=== PATIENT | female | born 1970 | race Caucasian/White ===

== ENCOUNTER 2018-03-15 15:24 | Emergency (ER) | payer OTHER, SELFPAY ==
[2018-03-15 15:27] VITALS: BP 166/97; PULSE 75; RESP 16; TEMP 36.8; O2SAT 99; BMI 32.5
--- NOTE | 2018-03-15 16:32 | ED.UPPEXIN ---
HPI - Extremity Injury (Upper) General Chief Complaint: Extremity Injury, Upper Stated Complaint: LT THUMB INJURY Time Seen by Provider: 03/15/18 15:47 Source: patient Mode of arrival: ambulatory Limitations: no limitations History of Present Illness HPI narrative: Patient states she was working with her horse when a metal buckle attached to the horses harness caught on her L thumb and caused a gash in the tip of her thumb. She denies any other injuries. complaint: injury to: left Onset (ago): hour(s) Other Extremity Injury: Left: fingers ( thumb) Other injuries: none Handedness: right Place: home Severity: moderate Severity scale (1-10): 7 Relieving factors: none Exacerbating factors: none Context: other ( see above) Related Data Home Medications Medication Instructions Recorded Confirmed bupropion HCl [Wellbutrin XL] 150 mg PO QDAY #0 01/22/16 03/15/18 cholecalciferol (vitamin D3) 2,000 unit PO QDAY #0 06/28/17 [Vitamin D3] cyanocobalamin (vitamin B-12) PO QDAY #0 06/28/17 [Vitamin B-12] citalopram 1 tab PO DAILY 03/15/18 03/15/18 estradiol 03/15/18 losartan 1 tab PO DAILY 03/15/18 03/15/18 omeprazole 1 cap PO DAILY 03/15/18 03/15/18 Allergies Allergy/AdvReac Type Severity Reaction Status Date / Time hydromorphone [From DILAUDID] Allergy Intermediate Verified 03/15/18 15:27 morphine [MORPHINE] Allergy Mild ITCHING Verified 03/15/18 15:27 hydrocodone [HYDROCODONE] AdvReac Intermediate Verified 03/15/18 15:27 Review of Systems Review of Systems All systems reviewed & are unremarkable except as noted in HPI and below Constitutional Denies chills, Denies fever(s), Denies lethargy and Denies weakness Eyes Denies change in vision, Denies eye discharge, Denies irritation and Denies loss of vision ENT Ears, Nose, Mouth, and Throat: Denies change in voice, Denies neck pain and Denies sore throat Cardiovascular Denies chest pain, Denies irregular heart rhythm, Denies lightheadedness, Denies palpitations, Denies dyspnea, Denies dyspnea on exertion and Denies orthopnea Respiratory Denies cough, Denies dyspnea, Denies dyspnea on exertion and Denies wheezing Gastrointestinal Gastrointestinal: Denies abdominal pain, Denies change in bowel habits, Denies diarrhea, Denies nausea and Denies vomiting Genitourinary Denies hematuria, Denies flank pain, Denies urinary incontinence and Denies urinary urgency Musculoskeletal Denies neck pain Comments: soft tissue injury left thumb Integumentary/Breasts Denies pruritus, Denies erythema, Denies rash and Denies wounds Neurologic Denies confusion, Denies loss of vision and Denies weakness Psychiatric Denies anxiety, Denies confusion, Denies depression, Denies homicidal ideation and Denies suicidal ideation Endocrine Denies palpitations Hematologic/Lymphatic Denies easy bruising Allergic/Immunologic Denies wheezing PFSH Social History Smoking Status: Never smoker Exam Initial Vital Signs Initial Vital Signs: Vital Signs Temperature 98.2 F 03/15/18 15:27 Pulse Rate 75 03/15/18 15:27 Respiratory Rate 16 03/15/18 15:27 Blood Pressure 166/97 H 03/15/18 15:27 Pulse Oximetry 99 03/15/18 15:27 Const General: cooperative and well developed Nutritional Appearance: well nourished Orientation: alert, awake, oriented x3 and not confused [facility] Head: normocephalic and atraumatic Ears: external ears normal Nose: external nose normal and No nasal discharge Face and sinus: face symmetric and No dry mucous membranes Mouth: oral mucosae normal and moist mucous membranes Teeth and gingiva: dentition normal Eyes General: appearance normal, both eyes and all related structures Eyelids: eyelids normal Conjunctivae: conjunctivae normal Sclera: sclerae normal Pupils: PERRL EOM: EOM intact bilaterally Neck Neck: normal visual inspection, trachea midline, No lymphadenopathy, No midline deformity and No JVD Lymphatic: No lymphedema Chest Chest: normal inspection of the chest Resp Effort & Inspection: normal respiratory effort, able to speak in complete sentences, no respiratory distress and no use of accessory muscles Auscultation: clear to auscultation bilaterally, no rales, no rhonchi and no wheezes Cardio Rate: regular rate Rhythm: regular rhythm Heart Sounds: no click, no gallops, no murmurs and no rubs Pulses: normal peripheral pulses Back/Spine/Pelvis Back: No CVA tenderness Cervical Spine: cervical ROM normal and No pain with cervical ROM Thoracic/Lumbar Spine: thoracic and lumbar spine normal to inspection Skin General: no rashes or lesions noted, No jaundice and No petechiae Other: 4 cm laceration with jagged edges, noted to pad of left thumb. No bony or nail bed involvement. Minimal contamination with dirt. Tissue surrounding the wound is pink and viable-appearing, with good capillary refill. Neuro General: alert, oriented x3, gait normal and no focal motor deficits Speech: speech normal Extrem General: full ROM, no clubbing, cyanosis or edema, no pedal edema and no calf tenderness Other: Full range of motion of left thumb at the MCP and IP joints. No bony deformity. Psych Appearance: well kempt Mental Status: mental status grossly normal Attitude: cooperative Thought Content: normal and suicidality Judgment: judgment good Procedures Laceration Repair Laceration 1: Site: hand ( thumb) Side (If applicable): left Size (cm): 4 Description: irregular and contaminated ( mildly) Depth: simple, single layer Local Anesthetic: bupivacaine 0.5% ( as digital block) Amount of anesthesia used (mL): 8 Pre-repair: wound explored, irrigated extensively, deep structures intact and wound margins revised Skin layer closed with: nylon Size (cm): 5-0 Number of sutures: 12 Technique: simple, interrupted Nerve Block Nerve Block 1: Time out performed: Yes Local Anesthetic: bupivacaine 0.5% Amount of anesthesia used (mL): 8 Side: left Nerve Blocks: digital ( left thumb) Procedure Successful: Yes Patient Tolerated Procedure: Well and No complications Complications: none Course Course Narrative: bradly remained stable throughout her stay in the emergency department. She was initially given a soak with saline and Betadine, and the procedure was undertaken, as above. X-ray was performed to evaluate for possibility of fracture, this was found to be negative. Orders Ordered: ED Orders 03/15/18 16:31 XR hand LT min 3V Stat Vital Signs - 8 hr 03/15/18 15:27 03/15/18 18:21 Temperature 98.2 F Pulse Rate 75 77 Respiratory Rate 16 Blood Pressure 166/97 H 136/84 Pulse Oximetry 99 100 MDM - Extremity Injury (Upper) Medical Records Attestation: I reviewed the patient's medical records. Imaging Data Left hand x-ray: Attestation: I personally reviewed and interpreted this imaging study as follows: My impression: negative Radiologist's impression: PROCEDURE: XR HAND LT MIN 3V INDICATIONS: trauma, pain TECHNIQUE: 3 views of the hand(s) acquired. COMPARISON: None. FINDINGS: Bones: There is a ring identified overlying the proximal phalanx of the middle finger, which does result in inadequate evaluation of the 2nd through 5th proximal phalanges of the left hand on the lateral view. No displaced fractures or dislocations are identified. No suspicious osseous lesions are evident. Soft tissues: No suspicious soft tissue calcifications. Prominent soft tissue swelling with areas of soft tissue air are evident involving the thumb. No radiopaque foreign bodies are evident. IMPRESSION: 1. No acute fractures of the left hand. 2. Prominent soft tissue swelling with soft tissue air involving the thumb may be related to a laceration. Please correlate clinically to exclude infection. 3. No radiopaque foreign bodies. Dictated by: Nikhil Dalton M.D. on 03/15/2018 at 16:00 Approved by: Nikhil Dalton M.D. on 03/15/2018 at 16:03 [facility] Narrative Medical decision making narrative: we have discussed the usual wound care precautions that the patient should take at home, including avoidance of rubbing scrubbing or worsening the wound until the sutures are out, as a precautionary measure to prevent infection. We have discussed the usual indications for return, as well as the time frame for wound check and expected suture removal. Discharge Plan Departure Patient Disposition: Home Clinical Impression: Laceration of left thumb Discharge Date/Time: 03/15/18 18:22 Interventions: ED Discharge Assessment Last Done: 03/15/18 18:21 Instructions: DI for Laceration Repair Prescriptions: No Action bupropion HCl [Wellbutrin XL] 150 MG tablet extended release 24 hr 150 mg PO QDAY Qty: 0 RF: 0 cyanocobalamin (vitamin B-12) [Vitamin B-12] 50 mcg Tablet PO QDAY Qty: 0 RF: 0 cholecalciferol (vitamin D3) [Vitamin D3] 2,000 UNIT capsule 2,000 unit PO QDAY Qty: 0 RF: 0 citalopram 40 mg tablet 1 tab PO DAILY RF: 0 estradiol 0.1 mg/24 hr patch semiweekly RF: 0 omeprazole 40 mg capsule,delayed release(DR/EC) 1 cap PO DAILY RF: 0 losartan 25 mg tablet 1 tab PO DAILY RF: 0 Referrals: Liudmila Winn PA-C [Primary Care Provider] - (Please follow up with your doctor in 7 days for wound recheck and suture removal.)
--- NOTE | 2018-03-15 16:41 | PC.NURSE ---
Digital block performed by provider. Significant improvment in pain noted per patient. Soaked thumb in chlorahexadine bath and irrigated with NS.
[2018-03-15 18:21] VITALS: BP 136/84; PULSE 77; O2SAT 100
== END 2018-03-15 18:22 | disposition home or self-care (01) ==
PROVIDERS: Emergency Provider Emergency Medicine; PCP Physician Assistant
DX: S61.012A Laceration without foreign body of left thumb without damage to nail, initial encounter (principal); W23.0XXA Caught, crushed, jammed, or pinched between moving objects, initial encounter
CPT/HCPCS: 12002; 64450; 73130; 99283

== ENCOUNTER 2021-01-17 10:02 | Emergency (ER) | payer OTHER, SELFPAY ==
[2021-01-17] VITALS (14 sets, daily range): BP systolic 138–167; BP diastolic 82–98; PULSE 58–75; RESP 16–18; TEMP 36.6; O2SAT 96–98; BMI 33.5
[2021-01-17 12:19] LABS: Add Manual Diff / Slide Review NO; Basophils Absolute Auto 100 /uL (0-100); Basophils Percent Auto 0.8 % (0-2); Eosinophils Absolute Auto 200 /uL (0-450); Eosinophils Percent Auto 2.6 % (2-4); Hematocrit 42.2 % (36-46); Hemoglobin 14.1 g/dL (12.0-16.0); Lymphocytes Absolute Auto 2100 /uL (1100-4500); Lymphocytes Percent Auto 31.3 % (25-40); Mean Corpuscular HGB Conc 33.4 % (30-36); Mean Corpuscular Hemoglobin 32.1 PG (26-34); Mean Corpuscular Volume 96.2 fL (80-100); Monocytes Absolute Auto 600 /uL (0-900); Monocytes Percent Auto 8.7 % (3-14); Neutrophils Absolute Auto 3800 /uL (1500-7000); Neutrophils Percent Auto 56.6 % (50-75); Platelet Count 246 X10^3/uL (150-400); Red Blood Cell Count 4.38 X10^6/uL (4.0-5.2); Red Cell Distribution Width 13.6 % (11.6-14.8); White Blood Cell Count 6.6 X10^3/uL (4.5-11.0)
--- NOTE | 2021-01-17 12:26 | ED_ITS ---
HPI - GI Bleed General Chief complaint: GI Bleed Stated complaint: bloody stool Time Seen by Provider: 01/17/21 12:08 Source: patient Mode of arrival: Ambulatory Limitations: no limitations History of Present Illness HPI Narrative: This is a 50-year-old female comes emergency department with complaint of bloody stool x2 patient states that she noticed 2 episodes today. She denies any abdominal or rectal pain. She has got some chronic epigastric discomfort. She has felt a little lightheaded today. No syncope. No chest pain, no shortness of breath, no nausea vomiting patient does not take any aspirin thinners. She does not any changes to her bowel movements or urination. Patient does have a history significant for perforated ulcer which required a large abdominal surgery. She has had hysterectomy, appendectomy cholecystectomy. As well as oophorectomy. She is on citalopram, Wellbutrin omeprazole 40 mg daily. She has had 2 colonoscopies in the past but has not had her most recent EGD and colonoscopy and is overdue by several months. Related Data Home Medications Medication Instructions Recorded Confirmed bupropion HCl 150 mg 24 hr tablet, 150 mg PO QDAY #0 01/22/16 03/15/18 extended release (Wellbutrin XL) cholecalciferol (vitamin D3) 50 2,000 unit PO QDAY #0 06/28/17 mcg (2,000 unit) capsule (Vitamin D3) cyanocobalamin (vitamin B-12) 50 PO QDAY #0 06/28/17 mcg tablet (Vitamin B-12) citalopram 40 mg tablet 1 tab PO DAILY 03/15/18 03/15/18 estradiol 0.1 mg/24 hr semiweekly 03/15/18 transdermal patch losartan 25 mg tablet 1 tab PO DAILY 03/15/18 03/15/18 Previous Rx's Medication Instructions Recorded omeprazole 40 mg capsule,delayed 40 mg PO DAILY #30 cap 08/17/18 release prednisone 20 mg tablet 40 mg PO DAILY #10 tab 01/17/21 Allergies Allergy/AdvReac Type Severity Reaction Status Date / Time hydromorphone [From DILAUDID] Allergy Intermediate Verified 03/15/18 15:27 morphine [MORPHINE] Allergy Mild ITCHING Verified 03/15/18 15:27 hydrocodone [HYDROCODONE] AdvReac Intermediate Verified 03/15/18 15:27 Review of Systems Review of Systems ROS Unobtainable: All systems reviewed & are unremarkable except as noted in HPI and below Patient History Social History Smoking Status: Never smoker Smoking Status: Never smoker alcohol intake frequency: 0-2 drinks per day Substance Use Type: does not use Exam Narrative Exam Narrative: GENERAL: Alert and oriented x three, female in mild distress. HEENT: Head normocephalic, atraumatic, EOMI, pupils reactive, face symmetric, moist mucous membranes NECK: Supple, full range of motion CARDIOVASCULAR: Regular rate and rhythm without murmurs, rubs or gallops. RESPIRATORY: Breath sounds equal bilaterally, no wheezes rales or rhonchi. ABDOMEN: Soft, nontender. Normoactive bowel sounds all 4 quadrants. No guarding or rebound, rigidity, no mass : No CVA tenderness EXTREMITIES: Normal range of motion, no clubbing or edema. Neurovascularly intact NEUROLOGICAL: Cranial nerves II through XII grossly intact. Moving all extremities SKIN: Warm, dry, no petechiae, no rashes or lesions. Initial Vital Signs Initial Vital Signs: Vital Signs Temperature 98 F 01/17/21 10:05 Pulse Rate 71 01/17/21 10:05 Respiratory Rate 18 01/17/21 10:05 Blood Pressure 167/82 H 01/17/21 10:05 Pulse Oximetry 97 01/17/21 10:05 Course Orders Ordered: ED Orders 01/17/21 11:53 EKG-12 Lead Stat 01/17/21 12:10 Cancer Antigen 125 Stat Complete Blood Count AUTO DIFF Stat Comprehensive Metabolic Panel Stat Lipase Stat 01/17/21 13:33 CT abdomen pelvis w con Stat Consultations Consultation #1: Dr. Sloan, asks for CA 125 added on and patient to be set up for appointment to follow up shortly. Vital Signs Vital signs: Vital Signs - 8 hr 01/17/21 11:17 01/17/21 11:30 01/17/21 12:00 Pulse Rate 62 62 62 Respiratory Rate 16 Blood Pressure 142/84 H 141/82 H 138/82 Pulse Oximetry 98 97 97 01/17/21 12:17 01/17/21 12:30 01/17/21 12:34 Pulse Rate 66 60 69 Respiratory Rate Blood Pressure 150/91 H 143/92 H Pulse Oximetry 97 97 98 01/17/21 13:00 01/17/21 13:30 01/17/21 13:31 Pulse Rate 60 75 58 L Respiratory Rate 16 Blood Pressure 141/84 H 138/90 Pulse Oximetry 98 97 96 01/17/21 14:00 01/17/21 14:30 01/17/21 15:00 Pulse Rate 60 71 62 Respiratory Rate Blood Pressure 156/98 H 141/90 H Pulse Oximetry 96 98 97 01/17/21 15:30 Pulse Rate 65 Respiratory Rate Blood Pressure 148/91 H Pulse Oximetry 98 MDM - GI Bleed Lab Data Result diagrams: 01/17/21 12:10 01/17/21 12:10 Labs: Lab Results 01/17/21 01/17/21 01/17/21 Range/Units 12:10 12:10 12:10 WBC 6.6 (4.5-11.0) X10^3/uL RBC 4.38 (4.0-5.2) X10^6/uL Hgb 14.1 (12.0-16.0) g/dL Hct 42.2 (36-46) % MCV 96.2 (80-100) fL MCH 32.1 (26-34) PG MCHC 33.4 (30-36) % RDW 13.6 (11.6-14.8) % Plt Count 246 (150-400) X10^3/uL Neut % (Auto) 56.6 (50-75) % Lymph % (Auto) 31.3 (25-40) % Scott % (Auto) 8.7 (3-14) % Eos % (Auto) 2.6 (2-4) % Baso % (Auto) 0.8 (0-2) % Neut # (Auto) 3800 (2775-6285) /uL Lymph # (Auto) 2100 (6484-6405) /uL Scott # (Auto) 600 (0-900) /uL Eos # (Auto) 200 (0-450) /uL Baso # (Auto) 100 (0-100) /uL Sodium 139 (137-145) mmol/L Potassium 4.3 (3.4-5.1) mmol/L Chloride 106 (98-107) mmol/L Carbon Dioxide 26 (22-32) mmol/L BUN 11 (7-17) mg/dL Creatinine 0.73 (0.52-1.04) mg/dL Estimated GFR > 60.0 (>60) mL/min BUN/Creatinine Ratio 15.1 (6-22) Glucose 91 (70-100) mg/dL Calcium 9.2 (8.4-10.2) mg/dL Total Bilirubin 0.4 (0.2-1.3) mg/dL AST 26 (14-36) IU/L ALT 28 (<35) IU/L Alkaline Phosphatase 43 (38-126) U/L Total Protein 6.9 (6.3-8.2) g/dL Albumin 4.1 (3.5-5.0) g/dL Globulin 2.8 (1.7-4.1) g/dL Albumin/Globulin Ratio 1.5 (1.0-2.8) Lipase 90 (23-300) U/L CA 125 Antigen (0-35) U/mL // Range/Units 12:10 WBC (4.5-11.0) X10^3/uL RBC (4.0-5.2) X10^6/uL Hgb (12.0-16.0) g/dL Hct (36-46) % MCV (80-100) fL MCH (26-34) PG MCHC (30-36) % RDW (11.6-14.8) % Plt Count (150-400) X10^3/uL Neut % (Auto) (50-75) % Lymph % (Auto) (25-40) % Scott % (Auto) (3-14) % Eos % (Auto) (2-4) % Baso % (Auto) (0-2) % Neut # (Auto) (5034-3030) /uL Lymph # (Auto) (7738-7847) /uL Scott # (Auto) (0-900) /uL Eos # (Auto) (0-450) /uL Baso # (Auto) (0-100) /uL Sodium (137-145) mmol/L Potassium (3.4-5.1) mmol/L Chloride (98-107) mmol/L Carbon Dioxide (22-32) mmol/L BUN (7-17) mg/dL Creatinine (0.52-1.04) mg/dL Estimated GFR (>60) mL/min BUN/Creatinine Ratio (6-22) Glucose (70-100) mg/dL Calcium (8.4-10.2) mg/dL Total Bilirubin (0.2-1.3) mg/dL AST (14-36) IU/L ALT (<35) IU/L Alkaline Phosphatase (38-126) U/L Total Protein (6.3-8.2) g/dL Albumin (3.5-5.0) g/dL Globulin (1.7-4.1) g/dL Albumin/Globulin Ratio (1.0-2.8) Lipase (23-300) U/L CA 125 Antigen < 5.5 (0-35) U/mL Point of Care Testing Test Results Negative Urine Dip Bedside Urine Glucose Negative Bedside Urine Bilirubin - Negative Bedside Urine Ketone - Negative Urine Specific [place] 1.010 Bedside Urine Occult Blood - Negative Bedside Urine pH 8 Bedside Urine Protein - Negative Bedside Urine Urobilinogen - Negative Bedside Urine Nitrite - Negative Bedside Urine Leukocytes - Negative Esterase Imaging Data CT scan - abdomen/pelvis: Radiologist's Impression: [address] [id number] Scan ReportSigned Patient: Lidia Morris LMR#: [id number]: [id number]:[id number]/Sex: 50 / FDate of Service: 01/17/21Loc: EDAccession Number: [id number] Procedure: CT abdomen pelvis w con Ordering Provider: Rebekah Martins D.O. PROCEDURE: CT ABDOMEN PELVIS W CON INDICATIONS: rectal bleeding, bloating, hx of perforated ulcer 2015 TECHNIQUE: After the administration of intravenous contrast, axial sections acquired from the lung bases to the pubic symphysis. Coronal and sagittal reformats were performed. For radiation dose reduction, the following was used: automated exposure control, adjustment of mA and/or kV according to patient size. COMPARISON: [facility], CT, ABDOMEN/PELVIS WITH CONTRAST, 01/31/2016, 6:03. FINDINGS: Image quality: Excellent. Lung bases: Minimal bibasilar scattered atelectasis is seen. Calcified granuloma is noted adjacent to lateral pleura of left lung base series 3, image 17. Heart: No significant findings. ABDOMEN: Liver: Borderline hepatomegaly. Hepatic steatosis is seen. No discrete hepatic lesion. Gallbladder: Gallbladder is surgically absent. Biliary ducts: Unremarkable. Pancreas: Unremarkable. Spleen: There is borderline splenomegaly, no discrete splenic lesion. Adrenal Glands: Unremarkable. Kidneys and Ureters: No renal stones or hydronephrosis. Stomach and Bowel: There is no evidence of bowel obstruction. No gastric or small bowel wall thickening. Diffuse colonic wall thickening is seen with narrowing of the lumen and mild pericolonic fat stranding concerning for infectious or inflammatory colitis. Sigmoid diverticulosis is seen, no CT evidence of acute diverticulitis. No abscess collection. Peritoneum: No abnormal intraperitoneal fluid. No free air. Ventral Wall: No hernias. Abdominal Nodes: No retroperitoneal or mesenteric adenopathy by size criteria. Vessels: Aorta and inferior vena cava are normal in size. PELVIS: Pelvic Organs: Uterus is within normal limits. Suggestion of left ovarian cysts are seen measures up to 3.1 x 2.2 cm in size in left adnexa series 2 image 79. Bladder: Unremarkable. Pelvic Nodes: No enlarged lymph nodes. Miscellaneous: No hernias are seen. Bones: No suspicious bony lesion. No acute compression fracture or spondylolisthesis in lower thoracic and lumbar spine. IMPRESSION: 1. Diffuse colonic wall thickening and edema suggestive of infectious or inflammatory colitis. No abscess collection. No free fluid or free air. 2. Borderline hepatosplenomegaly, and hepatic steatosis. No discrete hepatic or splenic lesion. 3. Suggestion of multiple left ovarian cysts as above. Ultrasound of pelvis can be done for further evaluation of this region if indicated. Dictated by: Kulwinder Vazquez M.D. on 01/17/2021 at 14:39 Approved by: Kulwinder Vazquez M.D. on 01/17/2021 at 14:47 ECG Data Attestation: I personally reviewed and interpreted this ECG as follows: Prior ECG tracings: available for review Interpretation: Sinus rhythm, low-voltage QRS, rate of 60 MI 148 QRS is 78 QTC 414. Patient has inverted T-waves in V1 V2, prior EKG appears similar except for inverted T-wave in V2 but is present on V1 with no other new changes appreciated. MDM Narrative Medical decision making narrative: This is a 50-year-old female comes emergency department with complaint rectal bleeding. Based on her past medical history CT imaging was obtained and shows colitis. Hepatic steatosis is also noted and patient also has what appears to be several left ovarian cysts and was referred to get ultrasound imaging for further evaluation as this seems unlikely. Case was discussed with Dr. Sloan. CA 125 was added on and they are going to follow- up with the patient this following Wednesday urgently. Patient is started on steroids for possible colitis although we discussed this may be related to the changes in her pelvis that she swelling with Dr. Sloan. Patient was encouraged to get colonoscopy in the next several weeks. All questions answered. Return precautions discussed. Discharge Plan Departure Patient Disposition: Home Clinical Impression: Colitis, Hepatic steatosis Instructions: DI for Colitis Activity Restrictions/Additional Instructions: Your imaging today shows diffuse colitis which is likely the cause of your bleeding. It is also noted that you have changes to your liver and that should be followed by your primary care physician. There is also suggestion of possible left ovarian cysts. Based on your age I would follow-up with your physician for dedicated pelvic ultrasound for further evaluation. I spoke with Dr. Sloan from [facility] and she would like to see you shortly. We have also added on a lab that is currently pending to evaluate the changes in your pelvis more. You have an appointment on WednesdayJanuary 20 at 0830am. Check in 20 minutes prior to your appointment. Prescription sent to [facility] for steroids. These can sometimes be helpful for colitis. I do also recommend that you get your colonoscopy an EGD with Dr. Estrada. To further evaluate the reason that have inflammation in changes to your colon. Please call for an appointment this week. Please return for fevers, new or worsening abdominal pain, lightheadedness or passing out, persistent vomiting, recurrent black or bloody stools, chest pain or shortness of breath or other new or concerning symptoms. Prescriptions: New prednisone 20 mg tablet 40 mg PO DAILY Qty: 10 RF: 0 No Action bupropion HCl [Wellbutrin XL] 150 MG tablet extended release 24 hr 150 mg PO QDAY Qty: 0 RF: 0 cyanocobalamin (vitamin B-12) [Vitamin B-12] 50 mcg tablet PO QDAY Qty: 0 RF: 0 cholecalciferol (vitamin D3) [Vitamin D3] 2,000 UNIT capsule 2,000 unit PO QDAY Qty: 0 RF: 0 omeprazole 40 mg capsule,delayed release(DR/EC) 40 mg PO DAILY Qty: 30 RF: 6 citalopram 40 mg tablet 1 tab PO DAILY RF: 0 estradiol 0.1 mg/24 hr patch semiweekly RF: 0 losartan 25 mg tablet 1 tab PO DAILY RF: 0 Referrals: Elizabeth Sloan MD [Physician] - Dionne Srivastava PA-C [Primary Care Provider] - Mike Estrada MD [Physician] -
[2021-01-17 12:30] LABS: Alanine Aminotransferase 28 IU/L (<35); Albumin 4.1 g/dL (3.5-5.0); Albumin Globulin Ratio 1.5 (1.0-2.8); Alkaline Phosphatase 43 U/L (38-126); Aspartate Aminotransferase 26 IU/L (14-36); BUN Creatinine Ratio 15.1 (6-22); Bilirubin Total 0.4 mg/dL (0.2-1.3); Blood Urea Nitrogen 11 mg/dL (7-17); Calcium 9.2 mg/dL (8.4-10.2); Carbon Dioxide 26 mmol/L (22-32); Chloride 106 mmol/L (98-107); Estimated Glomerular Filt Rate > 60.0 mL/min (>60); Globulin 2.8 g/dL (1.7-4.1); Glucose 91 mg/dL (70-100); HEMOLYSIS < 15 (0-50); Potassium 4.3 mmol/L (3.4-5.1); Sodium 139 mmol/L (137-145); Total Protein 6.9 g/dL (6.3-8.2)
[2021-01-17 12:37] LABS: Lipase 90 U/L (23-300)
--- NOTE | 2021-01-17 13:33 | DI.CT.S_ITS ---
PROCEDURE: CT ABDOMEN PELVIS W CON INDICATIONS: rectal bleeding, bloating, hx of perforated ulcer 2015 TECHNIQUE: After the administration of intravenous contrast, axial sections acquired from the lung bases to the pubic symphysis. Coronal and sagittal reformats were performed. For radiation dose reduction, the following was used: automated exposure control, adjustment of mA and/or kV according to patient size. COMPARISON: [facility], CT, ABDOMEN/PELVIS WITH CONTRAST, 01/31/2016, 6:03. FINDINGS: Image quality: Excellent. Lung bases: Minimal bibasilar scattered atelectasis is seen. Calcified granuloma is noted adjacent to lateral pleura of left lung base series 3, image 17. Heart: No significant findings. ABDOMEN: Liver: Borderline hepatomegaly. Hepatic steatosis is seen. No discrete hepatic lesion. Gallbladder: Gallbladder is surgically absent. Biliary ducts: Unremarkable. Pancreas: Unremarkable. Spleen: There is borderline splenomegaly, no discrete splenic lesion. Adrenal Glands: Unremarkable. Kidneys and Ureters: No renal stones or hydronephrosis. Stomach and Bowel: There is no evidence of bowel obstruction. No gastric or small bowel wall thickening. Diffuse colonic wall thickening is seen with narrowing of the lumen and mild pericolonic fat stranding concerning for infectious or inflammatory colitis. Sigmoid diverticulosis is seen, no CT evidence of acute diverticulitis. No abscess collection. Peritoneum: No abnormal intraperitoneal fluid. No free air. Ventral Wall: No hernias. Abdominal Nodes: No retroperitoneal or mesenteric adenopathy by size criteria. Vessels: Aorta and inferior vena cava are normal in size. PELVIS: Pelvic Organs: Uterus is within normal limits. Suggestion of left ovarian cysts are seen measures up to 3.1 x 2.2 cm in size in left adnexa series 2 image 79. Bladder: Unremarkable. Pelvic Nodes: No enlarged lymph nodes. Miscellaneous: No hernias are seen. Bones: No suspicious bony lesion. No acute compression fracture or spondylolisthesis in lower thoracic and lumbar spine. IMPRESSION: 1. Diffuse colonic wall thickening and edema suggestive of infectious or inflammatory colitis. No abscess collection. No free fluid or free air. 2. Borderline hepatosplenomegaly, and hepatic steatosis. No discrete hepatic or splenic lesion. 3. Suggestion of multiple left ovarian cysts as above. Ultrasound of pelvis can be done for further evaluation of this region if indicated. Dictated by: Kulwinder Vazquez M.D. on 01/17/2021 at 14:39 Approved by: Kulwinder Vazquez M.D. on 01/17/2021 at 14:47
[2021-01-17 16:13] LABS: Cancer Antigen 125 < 5.5 U/mL (0-35)
== END 2021-01-17 15:58 | disposition home or self-care (01) ==
PROVIDERS: Emergency Provider Emergency Medicine; PCP Student in an Organized Health Care Education/Training Program
DX: K52.9 Noninfective gastroenteritis and colitis, unspecified (principal); R10.13 Epigastric pain; K76.0 Fatty (change of) liver, not elsewhere classified; K62.5 Hemorrhage of anus and rectum
CPT/HCPCS: 36415; 74177; 80053; 81003; 81025; 83690; 85025; 86304; 93005; 93010; 99284; Q9967

== ENCOUNTER → 2021-03-11 13:43 | Outpatient (CLI) | payer OTHER, SELFPAY ==
--- NOTE | 2021-03-11 | DI.MRI.S_ITS ---
PROCEDURE: MR PELVIS WO/W CON INDICATIONS: Intra-abdominal and pelvic swelling, mass and lump TECHNIQUE: Coronal HASTE, sagittal breath-hold T2 FSE; axial T1 FSE with and without fat saturation through the pelvis. Optional long- and short-axis uterine nonbreath-hold T2 FSE through the uterus. Sagittal or axial dynamic VIBE during administration of contrast. Post-contrast axial or coronal VIBE/2-D FLASH with fat saturation from the iliac crests to the symphysis. Optional diffusion weighted imaging and ADC may be performed. COMPARISON: [facility], US, US PELVIC COMPLETE, 01/20/2021, 8:49. [facility], MR, PELVIS W&WO CONTRAST, 06/22/2014, 15:46. FINDINGS: Image quality: Excellent. Uterus: The uterus is surgically absent. The vaginal canal and vaginal cuff appear normal. Adnexa: The left ovary contains a dominant follicle measuring 2.4 x 2.2 cm which demonstrates hyperintense T1 and T2 signal. There is no internal enhancement postcontrast. Right ovarian tissue is not convincingly identified. There is either chronic or recurrent simple fluid in the left paraovarian adnexa. No wall thickening. No enhancing solid mass. Urinary system: Bladder wall is normal in thickness. Distal ureters are non distended. Urethra appears normal in morphology. Nodes and vessels: No pelvic or inguinal adenopathy by size criteria. Iliac vessels are normal in size. Bowel and peritoneum: No pathologic free pelvic fluid. Inferior colon and small bowel loops are normal in caliber. Mild sigmoid diverticulosis. Soft tissues: Numerous micro metallic artifacts are seen along the anterior abdominal wall in the subcutaneous tissues. No inguinal hernias. No findings of pelvic floor incompetence in the absence of provocation. Bones: Marrow demonstrates normal overall signal. IMPRESSION: 1. 2.4 cm hemorrhagic left ovarian cyst. 2. Either chronic or recurrent left paraovarian fluid, much less extensive compared to a remote MRI from 2014. This may be physiologic. This may also represent a peritoneal inclusion cyst. There are no suspicious features. 3. Post hysterectomy. Dictated by: Krystyna Fitch M.D. on 03/11/2021 at 16:34 Approved by: Krystyna Fitch M.D. on 03/11/2021 at 16:50
== END ==
PROVIDERS: PCP Student in an Organized Health Care Education/Training Program; Referring Provider Student in an Organized Health Care Education/Training Program; Visit Provider Student in an Organized Health Care Education/Training Program
DX: R19.00 Intra-abdominal and pelvic swelling, mass and lump, unspecified site (principal); N83.202 Unspecified ovarian cyst, left side; Z90.710 Acquired absence of both cervix and uterus
CPT/HCPCS: 72197

== ENCOUNTER → 2021-04-28 13:35 | Outpatient (CLI) | payer OTHER, SELFPAY ==
[2021-04-28 17:30] LABS: COVID19 -Nasal RAPID Negative (Negative)
== END ==
PROVIDERS: PCP Student in an Organized Health Care Education/Training Program; Visit Provider Nurse Practitioner Family
DX: Z20.822 Contact with and (suspected) exposure to COVID-19 (principal)
CPT/HCPCS: 87635

== ENCOUNTER 2021-04-30 12:07 | Day surgery (SDC) | payer OTHER, SELFPAY ==
[2021-04-30] VITALS (7 sets, daily range): BP systolic 120–139; BP diastolic 66–88; PULSE 59–77; RESP 15–18; TEMP 36.2–36.6; O2SAT 98–99; BMI 32.9
--- NOTE | 2021-04-30 | PATH_ITS ---
[facility] Accession Number: [id number] . 01 Material submitted: . PART A: colon - RANDOM BIOPSIES PART B: sigmoid colon - SIGMOID COLON POLYPS . 02 Diagnosis: A. Random Colon, Biopsies: Colonic mucosa with mildly increased intraepithelial lymphocytes, suggestive of lymphocytic colitis. Negative for granulomas, dysplasia and malignancy. . B. Sigmoid Colon, Polyps, Biopsies: Hyperplastic polyps. V 05/02/2021 1458 Local . 02 Electronically signed: . Jonna Sandy MD, Pathologist NPI- [id number] . 01 Gross description: . Part A: RANDOM BIOPSIES: Received in formalin are 6 fragment(s) of garsia, soft tissue measuring 0.4 x 0.2 x 0.1 cm to 0.2 x 0.2 x 0.1 cm submitted entirely in 1 cassette(s) Part B: SIGMOID COLON POLYPS: Received in formalin are 2 fragment(s) of garsia, soft tissue measuring 0.4 x 0.3 x 0.1 cm to 0.2 x 0.2 x 0.2 cm submitted entirely in 1 cassette(s) /QBJ 05/01/2021 0842 Local . 02 Pathologist provided ICD-10: K63.5, K52.89 . 02 CPT . 540681, [id number] Performed at: 01 [facility] Cyt[facility] [address] [facility] [place][note 2], [place], [place] [id number] MD Burak Avila MD Phone: [phone] Performed at: 02 [facility] [address] [place], [place] [id number] MD Jonna Sandy MD Phone: [phone]
[2021-04-30] MEDS: SODIUM CHLORIDE 0.9% 1,000 ML 84 ML IV (13:05)
--- NOTE | 2021-04-30 13:07 | P.OP.COLON_ITS ---
Operative Date/Time/Diagnoses Date of procedure: 04/30/21 Pre-op diagnosis: See indication and findings Procedure & Clinicians Study performed: Colonoscopy Indications: Rectal bleeding with abnormal bowel movements possible colitis Surgeon: Ld Mcnamara Procedure Notes Procedure in detail: After informed consent was obtained the patient was placed in left lateral decubitus position. The video colonoscope was introduced the rectum slowly advanced to cecum. Preparation was good. On slow withdrawal mucosa was carefully examined. The scope was removed. The patient tolerated procedure well. Blood loss none Complications none Sedation mac Findings 1. Scattered sigmoid diverticulosis 2. Two polyps 3 and 5 mm in the sigmoid colon cold biopsied and removed completely 3. Otherwise negative colonoscopy to cecum. Biopsies taken randomly to rule out microscopic colitis 4. Mild internal hemorrhoids. The patient is due to follow up with [facility] for her ovarian issues.
--- NOTE | 2021-04-30 13:07 | PM.PREOP ---
Pre-operative Note COVID-19 COVID-19 status: Negative Interval Note History & Physical reviewed/Exam performed by Physician: Yes Changes to H&P: No ASA Class (for procedural sedation): II
== END 2021-04-30 14:30 | disposition home or self-care (01) ==
PROVIDERS: PCP Student in an Organized Health Care Education/Training Program; Referring Provider Internal Medicine Gastroenterology; Visit Provider Internal Medicine Gastroenterology
PROC: 0DJD8ZZ Inspection of Lower Intestinal Tract, Via Natural or Artificial Opening Endoscopic (ICD-10-PCS; CPT 45378; principal; 2021-04-30 13:30)
DX: K52.89 Other specified noninfective gastroenteritis and colitis (principal); K57.30 Diverticulosis of large intestine without perforation or abscess without bleeding; K64.8 Other hemorrhoids; K63.5 Polyp of colon
CPT/HCPCS: 45380; J2704

== ENCOUNTER → 2021-06-10 10:33 | Outpatient (CLI) | payer OTHER, SELFPAY ==
--- NOTE | 2021-06-10 | DI.US.S_ITS ---
PROCEDURE: US PELVIC COMPLETE INDICATIONS: LEFT OVARIAN CYST TECHNIQUE: Real-time scanning was performed of the pelvic organs, with image documentation. Additional endovaginal scanning was necessary due to incomplete visualization of the adnexal and endometrial structures by transabdominal scanning. COMPARISON: [facility], US, PELVIC COMPLETE, 06/01/2014, 13:09. [facility], US, PELVIC COMPLETE, 05/23/2009, 13:05. [facility], CT, CT ABDOMEN PELVIS W CON, 01/17/2021, 14:22. [facility], US, US PELVIC COMPLETE, 01/20/2021, 8:49. FINDINGS: Uterus: Removed. Ovaries: The right ovary is surgically absent. The left ovary measures 3 x 2.7 x 3 cm. Within the left ovary, there is a 16 mm solid mass, without abnormal vascularity. There is also a 2.6 cm simple cyst, which is considered to be within physiologic limits. No adnexal masses are seen on either side. Other: Moderate free fluid can be seen, with low level echoes seen within it. IMPRESSION: There is a moderate amount of free pelvic fluid seen with internal echoes, which is attributed to hemorrhage, which is likely related to a ruptured hemorrhagic cyst or endometriosis in this patient with this patient history. Within the left ovary, there is a 16 mm solid-appearing nodule, which may represent an involuting hemorrhagic cyst. If it would be clinically appropriate, a followup pelvic ultrasound could be considered in 6 weeks to assure resolution/ improvement. Status post hysterectomy and right oophorectomy. We strive to produce accurate, complete, and clear reports of imaging services. To assist us in improving patient care, this report was composed using standard report templates and voice recognition software. Therefore, it may contain abnormal punctuation, insertions and/or omissions. Occasional wrong-word or sound-alike substitutions may occur. Though we review the report and make efforts to correct it, we do recommend that the report be read carefully in proper context to recognize any text inaccuracies. Dictated by: Jean Pierre Stark M.D. on 06/10/2021 at 12:10 Approved by: Jean Pierre Stark M.D. on 06/10/2021 at 12:14
== END ==
PROVIDERS: PCP Student in an Organized Health Care Education/Training Program; Referring Provider Student in an Organized Health Care Education/Training Program; Visit Provider Student in an Organized Health Care Education/Training Program
DX: N83.202 Unspecified ovarian cyst, left side (principal)
CPT/HCPCS: 76830; 76856

== ENCOUNTER → 2021-11-19 08:19 | Outpatient (CLI) | payer OTHER, SELFPAY ==
--- NOTE | 2021-11-19 | DI.US.S_ITS ---
PROCEDURE: US PELVIC COMPLETE INDICATIONS: ENDOMETRIOSIS TECHNIQUE: Real-time scanning was performed of the pelvic organs, with image documentation. Additional endovaginal scanning was necessary due to incomplete visualization of the adnexal and endometrial structures by transabdominal scanning. COMPARISON: [facility], MR, MR PELVIS WO/W CON, 03/11/2021, 14:10. [facility], US, US PELVIC COMPLETE, 06/10/2021, 11:15. FINDINGS: Uterus: Uterus is surgically absent. Ovaries: The right ovary is surgically absent. The left ovary measures 2.7 x 2.6 x 2.0 cm. There is a 1.8 x 2.1 x 1.7 centimeter hemorrhagic cyst versus solid nodule noted in the left ovary. Other: Small amount of free fluid with internal debris noted adjacent left adnexa. IMPRESSION: 1. Status post hysterectomy and right oophorectomy. 2. 1.8 x 2.1 x 1.7 centimeter isoechoic lesion in the left ovary which may represent hemorrhagic cyst or solid nodule. Recommend follow-up pelvic ultrasound in 6 weeks to evaluate for resolution of the finding. 3. Persistent left deon- adnexal fluid collection which could represent recurrent physiologic fluid or peritoneal inclusion cyst. Dictated by: Jocelyn Hilario MD, PhD on 11/19/2021 at 16:10 Approved by: Jocelyn Hilario MD, PhD on 11/19/2021 at 16:17
== END ==
PROVIDERS: PCP Student in an Organized Health Care Education/Training Program; Referring Provider Student in an Organized Health Care Education/Training Program; Visit Provider Student in an Organized Health Care Education/Training Program
DX: Z87.42 Personal history of other diseases of the female genital tract (principal)
CPT/HCPCS: 76830; 76856

== ENCOUNTER 2021-12-12 12:00 | Emergency (ER) | payer OTHER, SELFPAY ==
[2021-12-12 12:15] VITALS: BP 140/85; PULSE 74; RESP 15; TEMP 36.8; O2SAT 99; BMI 33.8
[2021-12-12] MEDS: methocarbamoL 500 MG TABLET PO (13:20)
[2021-12-12] MEDS: KETOROLAC 30 MG/ML VIAL 15 MG IM (13:20)
[2021-12-12] MEDS: LIDOCAINE PATCH 1 EACH ADH..PATCH TOP (13:21)
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
[2021-12-12 14:18] VITALS: BP 144/79; PULSE 56; RESP 16; O2SAT 99
== END 2021-12-12 14:20 | disposition home or self-care (01) ==
PROVIDERS: Emergency Provider Nurse Practitioner Critical Care Medicine; PCP Student in an Organized Health Care Education/Training Program
DX: S46.812A Strain of other muscles, fascia and tendons at shoulder and upper arm level, left arm, initial encounter (principal); V89.2XXA Person injured in unspecified motor-vehicle accident, traffic, initial encounter
CPT/HCPCS: 72040; 96372; 99283; J1885

== ENCOUNTER 2022-01-27 02:16 | Emergency (ER) | payer OTHER, SELFPAY ==
[2022-01-27 02:42] VITALS: BP 189/90; PULSE 83; RESP 17; TEMP 36.7; O2SAT 97; BMI 32.9
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
--- NOTE | 2022-01-27 03:34 | DI.CT.S_ITS ---
PROCEDURE: CT KIDNEY URETER BLADDER (KUB) INDICATIONS: left flank pain TECHNIQUE: Axial sections were acquired from the lung bases to the pubic symphysis. Coronal and sagittal reformats were performed. For radiation dose reduction, the following was used: automated exposure control, adjustment of mA and/or kV according to patient size. COMPARISON: [facility], MR, MR PELVIS WO/W CON, 03/11/2021, 14:10. [facility], US, US PELVIC COMPLETE, 11/19/2021, 9:33. [facility], CT, CT ABDOMEN PELVIS W CON, 01/17/2021, 14:22. FINDINGS: Image quality: Excellent. Lung bases: No pleural effusion. Left lower lobe calcified granuloma redemonstrated. URINARY: Right Kidney: No stones or hydronephrosis. Right Ureter: No hydroureter. Left Kidney: No stones or hydronephrosis. Left Ureter: No hydroureter. Bladder: Normal wall thickness. No stones. ABDOMEN: Liver: Unremarkable. Gallbladder: Surgically absent. Biliary ducts: Unremarkable. Pancreas: Unremarkable. Spleen: Unremarkable. Adrenal Glands: Unremarkable. Stomach and Bowel: No bowel obstruction. Mild predominantly sigmoid colonic diverticulosis without evidence of acute diverticulitis. Peritoneum: Left adnexal fluid as below. No free air. Ventral Wall: Small fat containing supraumbilical ventral hernia. Abdominal Nodes: No enlarged retroperitoneal or mesenteric lymph nodes. Vessels: Aorta and inferior vena cava are normal in size. PELVIS: Pelvic Organs: Prior hysterectomy. The ovaries are not well evaluated by CT, however the previously demonstrated left ovarian cyst and adjacent left adnexal fluid do not appear overtly changed compared to prior pelvic ultrasound and MRI. Pelvic Nodes: Unremarkable. Miscellaneous: No inguinal hernias are seen. Bones: Multilevel degenerative change of the visualized spine. IMPRESSION: No urinary stone or hydroureteronephrosis. No substantial differences between the final report and the preliminary report. Dictated by: Mike Gonzalez M.D. on 01/27/2022 at 8:20 Approved by: Mike Gonzalez M.D. on 01/27/2022 at 8:40
[2022-01-27] MEDS: KETOROLAC 30 MG/ML VIAL 15 MG IV (03:39)
[2022-01-27] MEDS: SODIUM CHLORIDE 0.9% 1,000 ML 1000 ML IV (03:39)
[2022-01-27 04:00] LABS: Add Manual Diff / Slide Review NO; Basophils Absolute Auto 0 /uL (0-100); Basophils Percent Auto 0.6 % (0-2); Eosinophils Absolute Auto 100 /uL (0-450); Eosinophils Percent Auto 2.1 % (2-4); Hematocrit 38.9 % (36-46); Hemoglobin 13.3 g/dL (12.0-16.0); Lymphocytes Absolute Auto 1900 /uL (1100-4500); Lymphocytes Percent Auto 27.8 % (25-40); Mean Corpuscular HGB Conc 34.2 % (30-36); Mean Corpuscular Hemoglobin 32.5 PG (26-34); Monocytes Absolute Auto 700 /uL (0-900); Monocytes Percent Auto 10.6 % (3-14); Neutrophils Absolute Auto 4100 /uL (1500-7000); Neutrophils Percent Auto 58.9 % (50-75); Platelet Count 192 X10^3/uL (150-400); Red Blood Cell Count 4.09 X10^6/uL (4.0-5.2); Red Cell Distribution Width 13.8 % (11.6-14.8); White Blood Cell Count 6.9 X10^3/uL (4.5-11.0)
[2022-01-27 04:25] LABS: Alanine Aminotransferase 24 IU/L (<35); Albumin 3.9 g/dL (3.5-5.0); Albumin Globulin Ratio 1.3 (1.0-2.8); Alkaline Phosphatase 36 U/L (38-126); Aspartate Aminotransferase 15 IU/L (14-36); BUN Creatinine Ratio 19.5 (6-22); Bilirubin Total 0.4 mg/dL (0.2-1.3); Blood Urea Nitrogen 16 mg/dL (7-17); Calcium 8.8 mg/dL (8.4-10.2); Carbon Dioxide 24 mmol/L (22-32); Chloride 105 mmol/L (98-107); Estimated Glomerular Filt Rate > 60 mL/min (>60); Globulin 2.9 g/dL (1.7-4.1); Glucose 100 mg/dL (70-100); HEMOLYSIS < 15 (0-50); Potassium 3.7 mmol/L (3.4-5.1); Sodium 136 mmol/L (137-145); Total Protein 6.8 g/dL (6.3-8.2)
[2022-01-27 05:47] VITALS: BP 132/74; PULSE 87; RESP 18; O2SAT 99
== END 2022-01-27 05:47 | disposition home or self-care (01) ==
PROVIDERS: Emergency Provider Emergency Medicine; PCP Student in an Organized Health Care Education/Training Program
DX: M54.50 Low back pain, unspecified (principal); N83.202 Unspecified ovarian cyst, left side
CPT/HCPCS: 36415; 74176; 80053; 81003; 85025; 96374; 99284; J1885

== ENCOUNTER → 2022-03-10 09:15 | Outpatient (CLI) | payer OTHER, SELFPAY ==
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
== END ==
PROVIDERS: PCP Student in an Organized Health Care Education/Training Program; Referring Provider Student in an Organized Health Care Education/Training Program; Visit Provider Student in an Organized Health Care Education/Training Program
DX: M89.8X1 Other specified disorders of bone, shoulder (principal); M25.512 Pain in left shoulder
CPT/HCPCS: 73000

== ENCOUNTER 2023-07-11 03:26 | Emergency (ER) | payer OTHER, SELFPAY ==
[2023-07-11 03:37] VITALS: PULSE 80; O2SAT 96
[2023-07-11 03:38] VITALS: BP 127/78; PULSE 86; RESP 17; TEMP 37.2; O2SAT 97; BMI 32.9
--- NOTE | 2023-07-11 03:45 | DI.CT.S_ITS ---
PROCEDURE: CT ABDOMEN PELVIS W CON INDICATIONS: LUQ PAIN/HX PERFORATED ULCER TECHNIQUE: After the administration of intravenous contrast, axial sections acquired from the lung bases to the pubic symphysis. Coronal and sagittal reformats were performed. For radiation dose reduction, the following was used: automated exposure control, adjustment of mA and/or kV according to patient size. COMPARISON: [facility], CT, CT ABDOMEN PELVIS W CON, 01/17/2021, 14:22., CT KUB 01/27/2022 FINDINGS: Image quality: Diagnostic. Lower Chest: No significant findings. Left lower lobe calcified granuloma. ABDOMEN: Liver: No solid mass. Gallbladder: Surgically absent Biliary ducts: No biliary dilation. Pancreas: No ductal dilation. Spleen: Size is within normal limits. Adrenal Glands: No adrenal nodules. Kidneys and Ureters: No hydronephrosis. No solid mass. No complex renal cystic lesion which requires follow up. Stomach and Bowel: No small bowel obstruction. Pericolonic inflammatory changes in the proximal descending colon consistent with acute diverticulitis. Peritoneum: No abnormal intraperitoneal fluid. No free air. Ventral Wall: No significant ventral hernia. Abdominal Nodes: No retroperitoneal or mesenteric adenopathy by size criteria. Vessels: Aorta and inferior vena cava are normal in size. PELVIS: Pelvic Organs: Status post hysterectomy Bladder: No bladder wall thickening, accounting for underdistention. Pelvic Nodes: No enlarged lymph nodes. Miscellaneous: No inguinal hernias are seen. Bones: No acute or suspicious osseous abnormality. IMPRESSION: Acute uncomplicated diverticulitis in the proximal descending colon. No associated abscess or free air. Findings are concordant with preliminary interpretation provided by [facility]. Approved by: Megan Rodriguez M.D. on 07/11/2023 at 11:40
--- NOTE | 2023-07-11 03:46 | ED.ABDPAIN ---
HPI - Abdominal Pain General Chief Complaint: Abdominal Pain Stated Complaint: lt side abd pain Time Seen by Provider: 07/11/23 03:30 Source: patient Mode of arrival: Ambulatory History of Present Illness HPI narrative: 52-year-old female with history of perforated gastric ulcer (in 2015) presents by private vehicle from home for left upper quadrant abdominal pain. Pain began yesterday approximately 9:00 a.m. after eating. It is constant, worse with movement and deep breaths. Took a muscle relaxer and Toradol at home, but this did not relieve her pain and so she decided to present for evaluation. Related Data Home Medications Medication Instructions Recorded Confirmed bupropion HCl 150 mg 24 hr tablet, 150 mg PO QDAY ##0 01/22/16 04/30/21 extended release (Wellbutrin XL) cholecalciferol (vitamin D3) 50 2,000 unit PO QDAY ##0 06/28/17 04/30/21 mcg (2,000 unit) capsule (Vitamin D3) citalopram 40 mg tablet 1 tab PO DAILY 03/15/18 04/30/21 Previous Rx's Medication Instructions Recorded omeprazole 40 mg capsule,delayed 40 mg PO DAILY History of gastric 08/17/18 release ulcer perforation #30 caps lidocaine 5 % topical patch 1 patch topical DAILY PRN pain #15 12/12/21 (Lidoderm) ea methocarbamol 500 mg tablet 500 mg PO TID #14 tabs 12/12/21 amoxicillin 875 mg-potassium 1 tab PO Q12H #20 tabs 07/11/23 clavulanate 125 mg tablet tramadol 50 mg tablet 50 mg PO Q8H PRN pain #14 tabs 07/11/23 Allergies Allergy/AdvReac Type Severity Reaction Status Date / Time hydromorphone [From DILAUDID] Allergy Intermediate Verified 12/12/21 12:15 morphine [MORPHINE] Allergy Mild ITCHING Verified 12/12/21 12:15 hydrocodone [HYDROCODONE] AdvReac Intermediate ITCHING Verified 12/12/21 12:15 Review of Systems Review of Systems Narrative: Negative except as noted above Patient History Medical History (Updated 07/11/23 @ 06:14 by Rebekah Causey MD) Hypertension Perforated gastric ulcer Surgical History (Updated 01/27/22 @ 03:37 by Renea King MD) History of oophorectomy Social History household members: none Smoking Status: Never smoker alcohol intake: current Smoking Status: Never smoker alcohol intake frequency: holidays/special occasions only Substance Use Type: does not use Exam Initial Vital Signs Initial Vital Signs: Vital Signs Pulse Rate 80 07/11/23 03:37 Pulse Oximetry 96 07/11/23 03:37 Const: Awake, alert, no acute distress, nontoxic appearing Cardiac: regular rate, regular rhythm RESP: unlabored, clear bilaterally, no wheezing GI: Atraumatic, soft, left upper quadrant tenderness to deep palpation without rebound or guarding MSK: Atraumatic, full range of motion, pulses equal Skin: Warm, Dry, intact, no rashes Neuro: AO x3, CN II-XII grossly intact, moves all extremities Psych: affect normal, mood normal, not suicidal, not homicidal Course Orders Ordered: ED Orders 07/11/23 03:45 CT abdomen pelvis w con Stat 07/11/23 04:04 CBC Auto Diff [Complete Blood Count AUTO DIFF] Stat CMP [Comprehensive Metabolic Panel] Stat Lipase Stat Discontinued Medications Al Hydrox/Mg Hydrox/Simethicone (Mag Hydrox/Alum/Simeth 30 Ml Udc) 30 ml PO NOW ONE Stop: 07/11/23 03:45 Last Admin: 07/11/23 03:51 Dose: 30 ml Documented By: ANATOLY Sodium Chloride (Normal Saline 0.9%) 1,000 mls @ 1,000 mls/hr IV BOLUS ONE Stop: 07/11/23 04:43 Last Admin: 07/11/23 04:01 Dose: 1,000 mls/hr Documented By: ANATOLY Lidocaine HCl (Lidocaine Viscous 2% 15 Ml Solution) 15 ml PO NOW ONE Stop: 07/11/23 03:45 Last Admin: 07/11/23 03:51 Dose: 15 ml Documented By: ANATOLY Ondansetron HCl (Ondansetron 4 Mg/2 Ml Inj) 4 mg IV NOW ONE Stop: 07/11/23 03:45 Last Admin: 07/11/23 04:01 Dose: 4 mg Documented By: ANATOLY Vital Signs Vital signs: Vital Signs - 8 hr 07/11/23 03:37 07/11/23 03:38 07/11/23 04:00 Temperature 99 F Pulse Rate 80 86 76 Respiratory Rate 17 Blood Pressure 127/78 Pulse Oximetry 96 97 96 Oxygen Delivery Method Room Air 07/11/23 04:30 07/11/23 05:00 Temperature Pulse Rate 72 65 Respiratory Rate 18 Blood Pressure 142/68 H Pulse Oximetry 92 94 Oxygen Delivery Method Room Air MDM - Abdominal Pain Differential Diagnosis Differential diagnosis: Likely abdominal pain, acute appendicitis and calculus of kidney Lab Data 07/11/23 04:04 07/11/23 04:04 Labs: Lab Results 07/11/23 Range/Units 04:04 WBC 10.5 (4.5-11.0) X10^3/uL RBC 4.34 (4.0-5.2) X10^6/uL Hgb 13.4 (12.0-16.0) g/dL Hct 39.0 (36-46) % MCV 89.9 (80-100) fL MCH 30.8 (26-34) PG MCHC 34.2 (30-36) % RDW 14.5 (11.6-14.8) % Plt Count 204 (150-400) X10^3/uL Neut % (Auto) 68.5 (50-75) % Lymph % (Auto) 20.0 L (25-40) % [place] % (Auto) 10.0 (3-14) % Eos % (Auto) 1.2 L (2-4) % Baso % (Auto) 0.3 (0-2) % Neut # (Auto) 7200 H (3828-8195) /uL Lymph # (Auto) 2100 (8673-2031) /uL [place] # (Auto) 1000 H (0-900) /uL Eos # (Auto) 100 (0-450) /uL Baso # (Auto) 0 (0-100) /uL Sodium 137 (137-145) mmol/L Potassium 4.4 (3.4-5.1) mmol/L Chloride 104 (98-107) mmol/L Carbon Dioxide 24 (22-32) mmol/L BUN 24 H (7-17) mg/dL Creatinine 0.78 (0.52-1.04) mg/dL Estimated GFR > 60 (>60) mL/min BUN/Creatinine Ratio 30.8 H (6-22) Glucose 100 (70-100) mg/dL Calcium 9.3 (8.4-10.2) mg/dL Total Bilirubin 0.7 (0.2-1.3) mg/dL AST 14 (14-36) IU/L ALT 24 (<35) IU/L Alkaline Phosphatase 46 (38-126) U/L Total Protein 7.3 (6.3-8.2) g/dL Albumin 4.2 (3.5-5.0) g/dL Globulin 3.1 (1.7-4.1) g/dL Albumin/Globulin Ratio 1.4 (1.0-2.8) Lipase 125 (23-300) U/L MDM Narrative Medical decision making narrative: Left upper quadrant abdominal pain. Abdomen is soft, no peritoneal signs. Patient has significant previous abdominal history, we will order labs and CT imaging. CT scan significant for acute uncomplicated diverticulitis without perforation. Patient reassessed, resting comfortably in bed. Laboratory work shows normal white blood cell count, normal hemoglobin, normal electrolytes and liver enzymes. Patient informed of lab and imaging findings, we will send antibiotics and pain medications to pharmacy of choice. Patient states that she has had a colonoscopy within the last 2 years that was reported to be otherwise normal. She has not upcoming appointment with her primary care physician next week and she will discuss the ED visit up today with her primary care doctor. ED return precautions discussed at bedside. Patient expressed understanding of the plan and is in agreement at this time. All questions answered at the time of discharge. Discharge Plan Departure Patient Disposition: Home Clinical Impression: Diverticulitis Instructions: Diverticulitis Activity Restrictions/Additional Instructions: Your CT today shows acute uncomplicated diverticulitis of the proximal descending colon, which is in the area of your pain. Take all medications as prescribed. Tramadol may cause constipation, which can worsen diverticulitis, so make sure to take a daily stool softener. Follow up with her primary care physician and your GI doctor. Prescriptions: New amoxicillin-pot clavulanate 875-125 mg tablet 1 tab PO Q12H Qty: 20 0RF tramadol 50 mg tablet 50 mg PO Q8H PRN (Reason: pain) Qty: 14 0RF No Action bupropion HCl [Wellbutrin XL] 150 MG tablet extended release 24 hr 150 mg PO QDAY Qty: 0 cholecalciferol (vitamin D3) [Vitamin D3] 2,000 UNIT capsule 2,000 unit PO QDAY Qty: 0 omeprazole 40 mg capsule,delayed release(DR/EC) 40 mg PO DAILY Qty: 30 6RF citalopram 40 mg tablet 1 tab PO DAILY lidocaine [Lidoderm] 5 % adhesive patch,medicated 1 patch topical DAILY PRN (Reason: pain) Qty: 15 0RF Rx Instructions: leave on most painful area for up to 12 hrs methocarbamol 500 mg tablet 500 mg PO TID Qty: 14 0RF Referrals: Dionne Srivastava PA-C [Primary Care Provider] - Stand Alone Forms: Patient Portal/API
[2023-07-11] MEDS: LIDOCAINE VISCOUS 2% 15 ML SOLUTION PO (03:51)
[2023-07-11] MEDS: MAG HYDROX/ALUM/SIMETH 30 ML UDC PO (03:51)
[2023-07-11 04:00] VITALS: PULSE 76; O2SAT 96
[2023-07-11] MEDS: ONDANSETRON 4 MG/2 ML INJ IV (04:01)
[2023-07-11] MEDS: SODIUM CHLORIDE 0.9% 1,000 ML 1000 ML IV (04:01)
[2023-07-11 04:24] LABS: Add Manual Diff / Slide Review NO; Basophils Absolute Auto 0 /uL (0-100); Basophils Percent Auto 0.3 % (0-2); Eosinophils Absolute Auto 100 /uL (0-450); Eosinophils Percent Auto 1.2 % (2-4); Hemoglobin 13.4 g/dL (12.0-16.0); Lymphocytes Absolute Auto 2100 /uL (1100-4500); Mean Corpuscular HGB Conc 34.2 % (30-36); Mean Corpuscular Hemoglobin 30.8 PG (26-34); Mean Corpuscular Volume 89.9 fL (80-100); Monocytes Absolute Auto 1000 /uL (0-900); Neutrophils Absolute Auto 7200 /uL (1500-7000); Neutrophils Percent Auto 68.5 % (50-75); Platelet Count 204 X10^3/uL (150-400); Red Blood Cell Count 4.34 X10^6/uL (4.0-5.2); Red Cell Distribution Width 14.5 % (11.6-14.8); White Blood Cell Count 10.5 X10^3/uL (4.5-11.0)
[2023-07-11 04:30] VITALS: PULSE 72; O2SAT 92
[2023-07-11 04:33] LABS: Alanine Aminotransferase 24 IU/L (<35); Albumin 4.2 g/dL (3.5-5.0); Albumin Globulin Ratio 1.4 (1.0-2.8); Alkaline Phosphatase 46 U/L (38-126); Aspartate Aminotransferase 14 IU/L (14-36); BUN Creatinine Ratio 30.8 (6-22); Bilirubin Total 0.7 mg/dL (0.2-1.3); Blood Urea Nitrogen 24 mg/dL (7-17); Calcium 9.3 mg/dL (8.4-10.2); Carbon Dioxide 24 mmol/L (22-32); Chloride 104 mmol/L (98-107); Estimated Glomerular Filt Rate > 60 mL/min (>60); Globulin 3.1 g/dL (1.7-4.1); Glucose 100 mg/dL (70-100); HEMOLYSIS < 15 (0-50); Lipase 125 U/L (23-300); Potassium 4.4 mmol/L (3.4-5.1); Sodium 137 mmol/L (137-145); Total Protein 7.3 g/dL (6.3-8.2)
[2023-07-11 05:00] VITALS: BP 142/68; PULSE 65; RESP 18; O2SAT 94
[2023-07-11 06:35] VITALS: BP 104/56; PULSE 63; RESP 18; O2SAT 99
== END 2023-07-11 06:55 | disposition home or self-care (01) ==
PROVIDERS: Emergency Provider Emergency Medicine; PCP Student in an Organized Health Care Education/Training Program
DX: K57.92 Diverticulitis of intestine, part unspecified, without perforation or abscess without bleeding (principal)
CPT/HCPCS: 36415; 74177; 80053; 83690; 85025; 96361; 96374; 99284; J2405; Q9967

== ENCOUNTER 2023-09-17 15:15 | Emergency (ER) | payer OTHER, SELFPAY ==
[2023-09-17] VITALS (8 sets, daily range): BP systolic 118; BP diastolic 60–74; PULSE 64–79; RESP 16; TEMP 37.1; O2SAT 95–98; BMI 29.9
[2023-09-17 15:43] LABS: Bacteria Urine None Seen; Culture Indicated Urine Specimen Cultured; RBC Urine None Seen (0-5/HPF); Squamous Epithelial Cell Urine 1-5 /HPF (0-5/HPF); Urine Volume 10mL (spun); WBC Urine 0-1/HPF (0-5/HPF)
--- NOTE | 2023-09-17 15:47 | ED_ITS ---
HPI - General Adult General Chief complaint: Abdominal Pain Stated complaint: lower lt abd pain Time Seen by Provider: 09/17/23 15:29 Source: patient Mode of arrival: Ambulatory History of Present Illness HPI narrative: Patient is a 53-year-old female who is here for evaluation of approximately 24 hours of left lower quadrant abdominal pain. She states that it was a fairly sudden onset has been persistent since the onset. No urinary symptoms. She does have issues with chronic constipation but she states that she did have a bowel movement since the onset of the discomfort which has not changed at all. She has had multiple abdominal surgeries. Has a history of endometriosis. Is having some nausea but no vomiting. No fevers. No chest pain or shortness of breath. She states that it does feel somewhat like her prior history of diverticulitis but it is at a different spot. She states it also feels like the time where she had a perforated gastric ulcer. Related Data Home Medications Medication Instructions Recorded Confirmed bupropion HCl 150 mg 24 hr tablet, 150 mg PO QDAY ##0 01/22/16 04/30/21 extended release (Wellbutrin XL) cholecalciferol (vitamin D3) 50 2,000 unit PO QDAY ##0 06/28/17 04/30/21 mcg (2,000 unit) capsule (Vitamin D3) citalopram 40 mg tablet 1 tab PO DAILY 03/15/18 04/30/21 Previous Rx's Medication Instructions Recorded omeprazole 40 mg capsule,delayed 40 mg PO DAILY History of gastric 08/17/18 release ulcer perforation #30 caps lidocaine 5 % topical patch 1 patch topical DAILY PRN pain #15 12/12/21 (Lidoderm) ea methocarbamol 500 mg tablet 500 mg PO TID #14 tabs 12/12/21 amoxicillin 875 mg-potassium 1 tab PO Q12H #20 tabs 07/11/23 clavulanate 125 mg tablet tramadol 50 mg tablet 50 mg PO Q8H PRN pain #14 tabs 07/11/23 ciprofloxacin HCl 500 mg tablet 500 mg PO Q12H 10 days #20 tabs 09/17/23 metronidazole 500 mg tablet 500 mg PO TID 10 days #30 tabs 09/17/23 ondansetron 4 mg disintegrating 4 mg PO Q6H PRN nausea and 09/17/23 tablet vomiting #10 tabs Allergies Allergy/AdvReac Type Severity Reaction Status Date / Time hydromorphone [From DILAUDID] Allergy Intermediate Verified 09/17/23 15:38 morphine [MORPHINE] Allergy Mild ITCHING Verified 09/17/23 15:38 hydrocodone [HYDROCODONE] AdvReac Intermediate ITCHING Verified 09/17/23 15:38 Review of Systems Review of Systems Narrative: See HPI ROS Unobtainable: All systems reviewed & are unremarkable except as noted in HPI and below Patient History Medical History Hypertension Perforated gastric ulcer Surgical History (Updated 01/27/22 @ 03:37 by Renea King MD) History of oophorectomy Social History household members: none Smoking Status: Never smoker alcohol intake: current Smoking Status: Never smoker alcohol intake frequency: holidays/special occasions only Substance Use Type: does not use Exam Initial Vital Signs Initial Vital Signs: Vital Signs Temperature 98.7 F 09/17/23 15:29 Pulse Rate 76 09/17/23 15:29 Respiratory Rate 16 09/17/23 15:29 Blood Pressure 118/74 09/17/23 15:29 Pulse Oximetry 98 09/17/23 15:29 Oxygen Delivery Method Room Air 09/17/23 15:29 Const General: cooperative, comfortable and No ill appearing HENNJ Head: normal to inspection and atraumatic Resp Effort & Inspection: normal respiratory effort Cardio Rate: regular rate GI Inspection: normal to inspection and non-distended Palpation: soft, No firm, No guarding and tender (Left lower quadrant) Skin General: no rashes or lesions noted Neuro General: patient alert, patient awake and moves all extremities Course Orders Ordered: ED Orders 09/17/23 15:22 Urine Culture Stat Urine Microscopic Stat 09/17/23 15:48 CT abdomen pelvis w con Stat 09/17/23 15:54 Complete Blood Count AUTO DIFF Stat Comprehensive Metabolic Panel Stat Lipase Stat Discontinued Medications Ketorolac Tromethamine (Ketorolac 30 Mg/Ml Vial) 30 mg IV NOW ONE Stop: 09/17/23 15:56 Last Admin: 09/17/23 16:07 Dose: 30 mg Documented By: TANYA Ondansetron HCl (Ondansetron 4 Mg/2 Ml Inj) 4 mg IV NOW ONE Stop: 09/17/23 15:56 Last Admin: 09/17/23 16:08 Dose: 4 mg Documented By: MO Vital Signs Vital signs: Vital Signs - 8 hr 09/17/23 15:29 Temperature 98.7 F Pulse Rate 76 Respiratory Rate 16 Blood Pressure 118/74 Pulse Oximetry 98 Oxygen Delivery Method Room Air Medical Decision Making Lab Data Lab results reviewed: Yes I reviewed the patient's lab results. 09/17/23 15:54 09/17/23 15:54 Labs: Lab Results 09/17/23 09/17/23 Range/Units 15:22 15:54 WBC 11.1 H (4.5-11.0) X10^3/uL RBC 4.51 (4.0-5.2) X10^6/uL Hgb 13.5 (12.0-16.0) g/dL Hct 40.2 (36-46) % MCV 89.1 (80-100) fL MCH 29.9 (26-34) PG MCHC 33.6 (30-36) % RDW 14.0 (11.6-14.8) % Plt Count 217 (150-400) X10^3/uL Neut % (Auto) 74.1 (50-75) % Lymph % (Auto) 15.7 L (25-40) % [place] % (Auto) 8.4 (3-14) % Eos % (Auto) 1.4 L (2-4) % Baso % (Auto) 0.4 (0-2) % Neut # (Auto) 8200 H (6530-1690) /uL Lymph # (Auto) 1700 (5373-6442) /uL [place] # (Auto) 900 (0-900) /uL Eos # (Auto) 200 (0-450) /uL Baso # (Auto) 0 (0-100) /uL Sodium 138 (137-145) mmol/L Potassium 4.1 (3.4-5.1) mmol/L Chloride 104 (98-107) mmol/L Carbon Dioxide 28 (22-32) mmol/L BUN 21 H (7-17) mg/dL Creatinine 0.76 (0.52-1.04) mg/dL Estimated GFR > 60 (>60) mL/min BUN/Creatinine Ratio 27.6 H (6-22) Glucose 104 H (70-100) mg/dL Calcium 9.9 (8.4-10.2) mg/dL Total Bilirubin 0.5 (0.2-1.3) mg/dL AST 13 L (14-36) IU/L ALT 21 (<35) IU/L Alkaline Phosphatase 51 (38-126) U/L Total Protein 7.8 (6.3-8.2) g/dL Albumin 4.6 (3.5-5.0) g/dL Globulin 3.2 (1.7-4.1) g/dL Albumin/Globulin Ratio 1.4 (1.0-2.8) Lipase 167 (23-300) U/L Urine RBC None seen (0-5/HPF) Urine WBC 0-1/hpf (0-5/HPF) Ur Squamous Epith Cells 1-5 /hpf (0-5/HPF) Urine Bacteria None seen (None) Ur Culture Indicated? Specimen cultured Vol Urine Centrifuged 10ml (spun) Urine Dip Bedside Urine Glucose Negative Bedside Urine Bilirubin - Negative Bedside Urine Ketone - Negative Urine Specific [place] 1.010 Bedside Urine Occult Blood - Negative Bedside Urine pH 7.0 Bedside Urine Protein - Negative Bedside Urine Urobilinogen - Negative Bedside Urine Nitrite - Negative Bedside Urine Leukocytes +/- 15 Esterase Point of care testing: Urine Dip Bedside Urine Glucose Negative Bedside Urine Bilirubin - Negative Bedside Urine Ketone - Negative Urine Specific [place] 1.010 Bedside Urine Occult Blood - Negative Bedside Urine pH 7.0 Bedside Urine Protein - Negative Bedside Urine Urobilinogen - Negative Bedside Urine Nitrite - Negative Bedside Urine Leukocytes +/- [address] scan - abdomen/pelvis: Radiologist's Impression: PROCEDURE: CT ABDOMEN PELVIS W CON INDICATIONS: LLQ abd pain TECHNIQUE: After the administration of intravenous contrast, axial sections acquired from the lung bases to the pubic symphysis. Coronal and sagittal reformats were performed. For radiation dose reduction, the following was used: automated exposure control, adjustment of mA and/or kV according to patient size. COMPARISON: [facility], CT, CT ABDOMEN PELVIS W CON, 07/11/2023, 5:04. [facility], CT, CT ABDOMEN PELVIS W CON, 01/17/2021, 14:22. FINDINGS: Image quality: Diagnostic. Lower Chest: No significant findings. ABDOMEN: Liver: No solid mass. Gallbladder: Previously resected Biliary ducts: No biliary dilation. Pancreas: No ductal dilation. Spleen: Size is within normal limits. Adrenal Glands: No adrenal nodules. Kidneys and Ureters: No hydronephrosis. No solid mass. No complex renal cystic lesion which requires follow up. Stomach and Bowel: Normal colonic caliber, without significant wall thickening. Peritoneum: No abnormal intraperitoneal fluid. No free air. Ventral Wall: No significant ventral hernia. Abdominal Nodes: No retroperitoneal or mesenteric adenopathy by size criteria. Vessels: Aorta and inferior vena cava are normal in size. PELVIS: Pelvic Organs: Unremarkable. Bladder: No bladder wall thickening, accounting for underdistention. Pelvic Nodes: No enlarged lymph nodes. Miscellaneous: No inguinal hernias are seen. Acute diverticulitis is identified within the lower left colon, below the level of prior acute diverticulitis identified 07/11/[address] scanning. As was previously the case no peridiverticular abscess is found. Incidental note is again made of surgical clips at the right lower quadrant suggesting prior appendectomy. Bones: No aggressive osseous abnormality. IMPRESSION: 1. Acute diverticulitis left lower quadrant, near an area of prior acute diverticulitis that was present somewhat more superiorly 07/11/23. That prior area has resolved. This new area is not associated with a peridiverticular abscess. 2. Prior cholecystectomy and appendectomy. Generalized moderate colonic obstipation as was previously the case. MDM Narrative Medical decision making narrative: Labs are unremarkable. CT scan does show diverticulitis without signs of perforation or abscess. During her last episode she did take Cipro and Flagyl and tolerated these medications without issue. Will send home with a prescription for these medicines. We will have her contact your primary doctor for follow-up. She may require a follow-up with Gastroenterology. She was given return precautions. She expressed understanding and agreement. Discharge Plan Departure Patient Disposition: Home Clinical Impression: Diverticulitis Instructions: DI for Diverticulitis Activity Restrictions/Additional Instructions: Your medications were sent to [facility] here in [place]. For start taking them as directed. Continue the rest of your medications as directed. I recommend you contact your primary provider for a follow-up. You may need a referral to see Gastroenterology. Return to the emergency department for new or worsening symptoms. Prescriptions: New metronidazole 500 mg tablet 500 mg PO TID 10 Days Qty: 30 0RF ciprofloxacin HCl 500 mg tablet 500 mg PO Q12H 10 Days Qty: 20 0RF ondansetron 4 mg tablet,disintegrating 4 mg PO Q6H PRN (Reason: nausea and vomiting) Qty: 10 0RF No Action bupropion HCl [Wellbutrin XL] 150 MG tablet extended release 24 hr 150 mg PO QDAY Qty: 0 cholecalciferol (vitamin D3) [Vitamin D3] 2,000 UNIT capsule 2,000 unit PO QDAY Qty: 0 omeprazole 40 mg capsule,delayed release(DR/EC) 40 mg PO DAILY Qty: 30 6RF citalopram 40 mg tablet 1 tab PO DAILY amoxicillin-pot clavulanate 875-125 mg tablet 1 tab PO Q12H Qty: 20 0RF tramadol 50 mg tablet 50 mg PO Q8H PRN (Reason: pain) Qty: 14 0RF lidocaine [Lidoderm] 5 % adhesive patch,medicated 1 patch topical DAILY PRN (Reason: pain) Qty: 15 0RF Rx Instructions: leave on most painful area for up to 12 hrs methocarbamol 500 mg tablet 500 mg PO TID Qty: 14 0RF Referrals: Dionne Srivastava PA-C [Primary Care Provider] - Stand Alone Forms: Patient Portal/API
[2023-09-17 16:01] LABS: Add Manual Diff / Slide Review NO; Basophils Absolute Auto 0 /uL (0-100); Basophils Percent Auto 0.4 % (0-2); Eosinophils Absolute Auto 200 /uL (0-450); Eosinophils Percent Auto 1.4 % (2-4); Hematocrit 40.2 % (36-46); Hemoglobin 13.5 g/dL (12.0-16.0); Lymphocytes Absolute Auto 1700 /uL (1100-4500); Lymphocytes Percent Auto 15.7 % (25-40); Mean Corpuscular HGB Conc 33.6 % (30-36); Mean Corpuscular Hemoglobin 29.9 PG (26-34); Mean Corpuscular Volume 89.1 fL (80-100); Monocytes Absolute Auto 900 /uL (0-900); Monocytes Percent Auto 8.4 % (3-14); Neutrophils Absolute Auto 8200 /uL (1500-7000); Neutrophils Percent Auto 74.1 % (50-75); Platelet Count 217 X10^3/uL (150-400); Red Blood Cell Count 4.51 X10^6/uL (4.0-5.2); White Blood Cell Count 11.1 X10^3/uL (4.5-11.0)
[2023-09-17] MEDS: KETOROLAC 30 MG/ML VIAL IV (16:07)
[2023-09-17] MEDS: ONDANSETRON 4 MG/2 ML INJ IV (16:08)
[2023-09-17 16:20] LABS: Alanine Aminotransferase 21 IU/L (<35); Albumin 4.6 g/dL (3.5-5.0); Albumin Globulin Ratio 1.4 (1.0-2.8); Alkaline Phosphatase 51 U/L (38-126); Aspartate Aminotransferase 13 IU/L (14-36); BUN Creatinine Ratio 27.6 (6-22); Bilirubin Total 0.5 mg/dL (0.2-1.3); Blood Urea Nitrogen 21 mg/dL (7-17); Calcium 9.9 mg/dL (8.4-10.2); Carbon Dioxide 28 mmol/L (22-32); Chloride 104 mmol/L (98-107); Estimated Glomerular Filt Rate > 60 mL/min (>60); Globulin 3.2 g/dL (1.7-4.1); Glucose 104 mg/dL (70-100); HEMOLYSIS < 15 (0-50); Lipase 167 U/L (23-300); Potassium 4.1 mmol/L (3.4-5.1); Sodium 138 mmol/L (137-145); Total Protein 7.8 g/dL (6.3-8.2)
== END 2023-09-17 17:32 | disposition home or self-care (01) ==
PROVIDERS: Emergency Provider Emergency Medicine; PCP Student in an Organized Health Care Education/Training Program
DX: K57.32 Diverticulitis of large intestine without perforation or abscess without bleeding (principal)
CPT/HCPCS: 74177; 80053; 81003; 81015; 83690; 85025; 87086; 96374; 96375; 99283; J1885; J2405; Q9967

== ENCOUNTER 2023-10-31 16:21 | Emergency (ER) | payer OTHER, SELFPAY ==
[2023-10-31 16:22] VITALS: BP 121/64; PULSE 81; RESP 20; TEMP 36.5; O2SAT 98; BMI 28.1
[2023-10-31 16:47] LABS: Add Manual Diff / Slide Review NO; Basophils Absolute Auto 0 /uL (0-100); Basophils Percent Auto 0.6 % (0-2); Eosinophils Absolute Auto 0 /uL (0-450); Eosinophils Percent Auto 0.3 % (2-4); Hematocrit 35.9 % (36-46); Hemoglobin 12.2 g/dL (12.0-16.0); Lymphocytes Absolute Auto 1200 /uL (1100-4500); Lymphocytes Percent Auto 18.3 % (25-40); Mean Corpuscular Volume 88.1 fL (80-100); Monocytes Absolute Auto 800 /uL (0-900); Monocytes Percent Auto 11.9 % (3-14); Neutrophils Absolute Auto 4500 /uL (1500-7000); Neutrophils Percent Auto 68.9 % (50-75); Platelet Count 196 X10^3/uL (150-400); Red Blood Cell Count 4.07 X10^6/uL (4.0-5.2); Red Cell Distribution Width 14.1 % (11.6-14.8); White Blood Cell Count 6.5 X10^3/uL (4.5-11.0)
[2023-10-31 17:03] LABS: Alanine Aminotransferase 20 IU/L (<35); Albumin 3.9 g/dL (3.5-5.0); Albumin Globulin Ratio 1.3 (1.0-2.8); Alkaline Phosphatase 40 U/L (38-126); Aspartate Aminotransferase 15 IU/L (14-36); BUN Creatinine Ratio 26.3 (6-22); Bilirubin Total 0.7 mg/dL (0.2-1.3); Blood Urea Nitrogen 20 mg/dL (7-17); Calcium 9.2 mg/dL (8.4-10.2); Carbon Dioxide 25 mmol/L (22-32); Chloride 107 mmol/L (98-107); Estimated Glomerular Filt Rate > 60 mL/min (>60); Glucose 118 mg/dL (70-100); HEMOLYSIS < 15 (0-50); Lipase 79 U/L (23-300); Potassium 4.1 mmol/L (3.4-5.1); Sodium 135 mmol/L (137-145); Total Protein 6.9 g/dL (6.3-8.2)
--- NOTE | 2023-10-31 18:29 | ED.ABDPAIN ---
HPI - Abdominal Pain General Chief Complaint: Abdominal Pain Stated Complaint: Abd pain T-3 Time Seen by Provider: 10/31/23 17:51 Source: patient Mode of arrival: Ambulatory History of Present Illness HPI narrative: 53-year-old female with history of perforated gastric ulcer (in 2015), diverticulitis presents by private vehicle from home for evaluation of 3 days of lower quadrant abdominal pain with nausea. Reports decreased p.o. intake in that time. Patient concerned that she may have an infection or her gastric ulcer is acting up. No medications taken at home prior to arrival. Related Data Home Medications Medication Instructions Recorded Confirmed bupropion HCl 150 mg 24 hr tablet, 150 mg PO QDAY ##0 01/22/16 04/30/21 extended release (Wellbutrin XL) cholecalciferol (vitamin D3) 50 2,000 unit PO QDAY ##0 06/28/17 04/30/21 mcg (2,000 unit) capsule (Vitamin D3) citalopram 40 mg tablet 1 tab PO DAILY 03/15/18 04/30/21 Previous Rx's Medication Instructions Recorded omeprazole 40 mg capsule,delayed 40 mg PO DAILY History of gastric 08/17/18 release ulcer perforation #30 caps lidocaine 5 % topical patch 1 patch topical DAILY PRN pain #15 12/12/21 (Lidoderm) ea methocarbamol 500 mg tablet 500 mg PO TID #14 tabs 12/12/21 amoxicillin 875 mg-potassium 1 tab PO Q12H #20 tabs 07/11/23 clavulanate 125 mg tablet tramadol 50 mg tablet 50 mg PO Q8H PRN pain #14 tabs 07/11/23 ondansetron 4 mg disintegrating 4 mg PO Q6H PRN nausea and 09/17/23 tablet vomiting #10 tabs Allergies Allergy/AdvReac Type Severity Reaction Status Date / Time hydromorphone [From DILAUDID] Allergy Intermediate Verified 09/17/23 15:38 morphine [MORPHINE] Allergy Mild ITCHING Verified 09/17/23 15:38 hydrocodone [HYDROCODONE] AdvReac Intermediate ITCHING Verified 09/17/23 15:38 Patient History Medical History Hypertension Perforated gastric ulcer Surgical History History of oophorectomy Social History household members: none Smoking Status: Never smoker alcohol intake: current Smoking Status: Never smoker alcohol intake frequency: holidays/special occasions only Substance Use Type: does not use Exam Initial Vital Signs Initial Vital Signs: Vital Signs Temperature 97.7 F 10/31/23 16:22 Pulse Rate 81 10/31/23 16:22 Respiratory Rate 20 10/31/23 16:22 Blood Pressure 121/64 10/31/23 16:22 Pulse Oximetry 98 10/31/23 16:22 Oxygen Delivery Method Room Air 10/31/23 16:22 Const: Awake, alert, no acute distress, nontoxic appearing Cardiac: regular rate, regular rhythm RESP: unlabored, clear bilaterally, no wheezing GI: Soft, generalized lower abdominal tenderness to deep palpation without rebound or guarding Skin: Warm, Dry, intact, no rashes Neuro: AO x3, CN II-XII grossly intact, moves all extremities Course Orders Ordered: Discontinued Medications Ondansetron HCl (Ondansetron 4 Mg/2 Ml Inj) 4 mg IV NOW PRN PRN Reason: Nausea And Vomiting Ondansetron HCl (Ondansetron 4 Mg Odt) 4 mg PO NOW PRN PRN Reason: Nausea And Vomiting Vital Signs Vital signs: Vital Signs - 8 hr 10/31/23 16:22 Temperature 97.7 F Pulse Rate 81 Respiratory Rate 20 Blood Pressure 121/64 Pulse Oximetry 98 Oxygen Delivery Method Room Air MDM - Abdominal Pain Differential Diagnosis Differential diagnosis: Likely abdominal pain, constipation and diverticulitis Lab Data 10/31/23 16:35 10/31/23 16:35 Labs: Lab Results 10/31/23 10/31/23 Range/Units 16:35 17:36 WBC 6.5 (4.5-11.0) X10^3/uL RBC 4.07 (4.0-5.2) X10^6/uL Hgb 12.2 (12.0-16.0) g/dL Hct 35.9 L (36-46) % MCV 88.1 (80-100) fL MCH 30.0 (26-34) PG MCHC 34.0 (30-36) % RDW 14.1 (11.6-14.8) % Plt Count 196 (150-400) X10^3/uL Neut % (Auto) 68.9 (50-75) % Lymph % (Auto) 18.3 L (25-40) % [place] % (Auto) 11.9 (3-14) % Eos % (Auto) 0.3 L (2-4) % Baso % (Auto) 0.6 (0-2) % Neut # (Auto) 4500 (4513-4287) /uL Lymph # (Auto) 1200 (3364-8509) /uL [place] # (Auto) 800 (0-900) /uL Eos # (Auto) 0 (0-450) /uL Baso # (Auto) 0 (0-100) /uL Sodium 135 L (137-145) mmol/L Potassium 4.1 (3.4-5.1) mmol/L Chloride 107 (98-107) mmol/L Carbon Dioxide 25 (22-32) mmol/L BUN 20 H (7-17) mg/dL Creatinine 0.76 (0.52-1.04) mg/dL Estimated GFR > 60 (>60) mL/min BUN/Creatinine Ratio 26.3 H (6-22) Glucose 118 H (70-100) mg/dL Calcium 9.2 (8.4-10.2) mg/dL Total Bilirubin 0.7 (0.2-1.3) mg/dL AST 15 (14-36) IU/L ALT 20 (<35) IU/L Alkaline Phosphatase 40 (38-126) U/L Total Protein 6.9 (6.3-8.2) g/dL Albumin 3.9 (3.5-5.0) g/dL Globulin 3.0 (1.7-4.1) g/dL Albumin/Globulin Ratio 1.3 (1.0-2.8) Lipase 79 (23-300) U/L Urine RBC None seen (0-5/HPF) Urine WBC 1-5/hpf (0-5/HPF) Ur Squamous Epith Cells None seen (0-5/HPF) Urine Bacteria Occasional (0-1) (None) Ur Culture Indicated? Specimen cultured Vol Urine Centrifuged 10ml (spun) Point of care testing: Urine Dip Bedside Urine Glucose Negative Bedside Urine Bilirubin - Negative Bedside Urine Ketone - Negative Urine Specific [place] 1.010 Bedside Urine Occult Blood - Negative Bedside Urine pH 6.0 Bedside Urine Protein - Negative Bedside Urine Urobilinogen - Negative Bedside Urine Nitrite - Negative Bedside Urine Leukocytes + [address] scan - abdomen/pelvis: Radiologist's Impression: PROCEDURE: CT ABDOMEN PELVIS W CON INDICATIONS: 3 DAYS LOWER ABD PAIN, HX DIVERTICULITIS TECHNIQUE: After the administration of intravenous contrast, axial sections acquired from the lung bases to the pubic symphysis. Coronal and sagittal reformats were performed. For radiation dose reduction, the following was used: automated exposure control, adjustment of mA and/or kV according to patient size. COMPARISON: [facility], CT, CT ABDOMEN PELVIS W CON, 07/11/2023, 5:04. [facility], CT, CT ABDOMEN PELVIS W CON, 09/17/2023, 16:30. FINDINGS: Image quality: Diagnostic. Lower Chest: No significant findings. ABDOMEN: Liver: No solid mass. Incidental note is made of focal fatty infiltration adjacent to the falciform ligament, which is not regarded to be pathologic. Gallbladder: Cholecystectomy. Biliary ducts: No biliary dilation. Pancreas: No ductal dilation. Spleen: Size is within normal limits. Adrenal Glands: No adrenal nodules. Kidneys and Ureters: No hydronephrosis. No solid mass. No complex renal cystic lesion which requires follow up. Stomach and Bowel: In this patient with this given history, scrutiny is given to lower abdomen. No significant abnormality of the sigmoid colon can be seen. No significant focal colonic abnormality is seen. Mild diverticulosis, without findings of active diverticulitis. There is a moderate volume of stool seen within the colon. No dilated loops of small bowel are seen. Appendectomy clips are seen. Peritoneum: No abnormal intraperitoneal fluid. No free air. Ventral Wall: There is a mild fat containing hernia seen along the anterior abdominal wall, superior to the umbilicus. Abdominal Nodes: No retroperitoneal or mesenteric adenopathy by size criteria. Vessels: Aorta and inferior vena cava are normal in size. PELVIS: Pelvic Organs: This patient is status post hysterectomy. No adnexal masses are seen. Bladder: No bladder wall thickening, accounting for underdistention. Pelvic Nodes: No enlarged lymph nodes. Miscellaneous: No inguinal hernias are seen. Bones: No aggressive osseous abnormality. IMPRESSION: Negative for diverticulitis. The previously seen diverticulitis has resolved. There is a moderate amount of stool seen within the colon. Please correlate with an underlying history of constipation. Additional findings: Cholecystectomy Appendectomy Hysterectomy Mild fat containing hernia along the anterior abdominal wall. Dictated by: Jean Pierre Stark M.D. on 10/31/2023 at 17:56 Approved by: Jean Pierre Stark M.D. on 10/31/2023 at 18:00 MDM Narrative Medical decision making narrative: Nontoxic patient presenting with 3 days of symptoms. Abdomen is soft but she was tender in the lower quadrants of her abdomen without rebound or guarding. Given patient's complex surgical history CT of the abdomen and pelvis will be obtained with laboratory work. Patient declined pain medications. Laboratory work significant for WBC count 6.5, hemoglobin 12.2, platelets 196, sodium 135, potassium 4.1, creatinine 0.76, normal liver enzymes. CT of the abdomen and pelvis shows moderate amount of stool in the colon, no evidence of diverticulitis, infection, obstruction. Patient informed of lab and imaging results, she was relieved to know that she does not have a perforation or flare-up of diverticulitis. Recommended daily stool softeners to see if this helps relieve her pain. Tylenol also advised for relief of symptoms. Discharge Plan Departure Patient Disposition: Home Clinical Impression: Abdominal pain, Constipation Instructions: DI for Abdominal Pain-Adult, DI for Constipation Activity Restrictions/Additional Instructions: Your laboratory work today did not show any signs of infection or organ dysfunction. Your CT did not show any evidence of infection, rupture, inflammation, or obstruction. It was noted that you have a very large amount of stool in your colon, which could be contributing to your symptoms. Take Tylenol at home for symptoms and start incorporating daily stool softener such as MiraLax, senna, or Dulcolax into your medication regimen. Goal is to have 1 large soft bowel movement daily Prescriptions: No Action bupropion HCl [Wellbutrin XL] 150 MG tablet extended release 24 hr 150 mg PO QDAY Qty: 0 cholecalciferol (vitamin D3) [Vitamin D3] 2,000 UNIT capsule 2,000 unit PO QDAY Qty: 0 omeprazole 40 mg capsule,delayed release(DR/EC) 40 mg PO DAILY Qty: 30 6RF citalopram 40 mg tablet 1 tab PO DAILY amoxicillin-pot clavulanate 875-125 mg tablet 1 tab PO Q12H Qty: 20 0RF tramadol 50 mg tablet 50 mg PO Q8H PRN (Reason: pain) Qty: 14 0RF lidocaine [Lidoderm] 5 % adhesive patch,medicated 1 patch topical DAILY PRN (Reason: pain) Qty: 15 0RF Rx Instructions: leave on most painful area for up to 12 hrs methocarbamol 500 mg tablet 500 mg PO TID Qty: 14 0RF ondansetron 4 mg tablet,disintegrating 4 mg PO Q6H PRN (Reason: nausea and vomiting) Qty: 10 0RF Referrals: Dionne Srivastava PA-C [Primary Care Provider] - Stand Alone Forms: Patient Portal/API
[2023-10-31 18:57] LABS: Bacteria Urine Occasional (0-1); RBC Urine None Seen (0-5/HPF); Squamous Epithelial Cell Urine None Seen (0-5/HPF); Urine Volume 10mL (spun); WBC Urine 1-5/HPF (0-5/HPF)
[2023-10-31 18:58] LABS: Culture Indicated Urine Specimen Cultured
[2023-10-31 19:36] VITALS: BP 112/71; PULSE 67; RESP 14; O2SAT 97
== END 2023-10-31 19:44 | disposition home or self-care (01) ==
PROVIDERS: Emergency Medicine; Emergency Provider Emergency Medicine; PCP Student in an Organized Health Care Education/Training Program
DX: R10.30 Lower abdominal pain, unspecified (principal); K59.00 Constipation, unspecified
CPT/HCPCS: 36415; 74177; 80053; 81003; 81015; 83690; 85025; 87086; 93005; 93010; 99284